=== PATIENT | female | born 1975 | race Caucasian/White ===

== ENCOUNTER 2017-08-25 07:41 | Day surgery (SDC) | payer BC ==
[~2017-08-25 07:41] MED LIST: Bupivacaine 0.25% 10 ML SDV ONE; Lactated Ringers 1,000 ML IV SCH; Sodium Chloride 0.9% 10 ML Syringe FLUSH PRN; Sodium Chloride 0.9% 2.5 ML Syringe FLUSH PRN
[2017-08-25] MEDS ORDERED: fentaNYL 250 MCG/5 ML SDV ONE (08:02)
[2017-08-25] MEDS ORDERED: Ketorolac 30 MG/ML SDV ONE (08:03)
[2017-08-25] MEDS ORDERED: Rocuronium 10 MG/ML 10 ML Syringe ONE (08:03)
[2017-08-25] MEDS ORDERED: Ondansetron 4 MG/2 ML SDV ONE (08:03)
[2017-08-25] MEDS ORDERED: Neostigmine Methylsulfate 1 MG/ML 5 ML Syringe ONE (08:03)
[2017-08-25] MEDS ORDERED: ePHEDrine 50 MG/ML SDV ONE (08:03)
[2017-08-25] MEDS ORDERED: Dexamethasone 4 MG/ML 5 ML MDV ONE (08:03)
[2017-08-25] MEDS ORDERED: Propofol 200 MG/20 ML SDV ONE (08:05)
[2017-08-25] MEDS ORDERED: Midazolam 1 MG/ML 2 ML SDV ONE (08:05)
--- NOTE | 2017-08-25 08:22 | PCM.PREANE ---
Preanesthetic Assessment - Anesthesia/Transfusion/Family Hx Anesthesia History: Prior Anesthesia Without Reaction Family History of Anesthesia Reaction: No Transfusion History: No Prior Transfusion(s) - Review of Systems General: No Symptoms Pulmonary: No Symptoms Cardiovascular: No Symptoms Gastrointestinal: No Symptoms Neurological: No Symptoms Other: Reports: None - Physical Assessment NPO Status Date: 08/24/17 Height: 1.59 m Weight: 75.296 kg ASA Class: 2 Mental Status: Alert & Oriented x3 Airway Class: Mallampati = 2 Dentition: Reports: Normal Dentition ROM/Head Extension: Full Lungs: Clear to Auscultation, Normal Respiratory Effort Cardiovascular: Regular Rate, Regular Rhythm - Lab Values: Laboratory Last Values WBC 8.88 K/uL (4.0-11.0) 08/24/17 16:25 RBC 4.68 M/uL (4.30-5.90) 08/24/17 16:25 Hgb 14.2 g/dL (12.0-16.0) 08/24/17 16:25 Hct 42.0 % (36.0-46.0) 08/24/17 16:25 MCV 89.7 fL (80.0-98.0) 08/24/17 16:25 MCH 30.3 pg (27.0-32.0) 08/24/17 16:25 MCHC 33.8 g/dL (31.0-37.0) 08/24/17 16:25 RDW Std Deviation 46.2 fl (28.0-62.0) 08/24/17 16:25 RDW Coeff of Caron 14 % (11.0-15.0) 08/24/17 16:25 Plt Count 245 K/uL (150-400) 08/24/17 16:25 MPV 11.30 fL (7.40-12.00) 08/24/17 16:25 Nucleated RBC % 0.0 /100WBC 08/24/17 16:25 Nucleated RBCs # 0 K/uL 08/24/17 16:25 HCG, Quant < 1.2 mIU/mL 08/24/17 16:25 - Allergies Allergies/Adverse Reactions: Allergies Allergy/AdvReac Type Severity Reaction Status Date / Time Latex, Natural Rubber Allergy Rash Verified 08/21/17 10:28 morphine Allergy Itching Verified 11/30/17 10:28 Penicillins Allergy Cannot Verified 08/21/17 10:28 Remember - Anesthesia Plan Pre-Op Medication Ordered: None - Acknowledgements Anesthesia Type Planned: General Anesthesia Pt an Appropriate Candidate for the Planned Anesthesia: Yes Alternatives and Risks of Anesthesia Discussed w Pt/Guardian: Yes Pt/Guardian Understands and Agrees with Anesthesia Plan: Yes PreAnesthesia Questionnaire HEENT History: Reports: Allergic Rhinitis Other HEENT History: wears glasses Gastrointestinal History: Reports: GERD 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 History: Reports: Ectopic , Musculoskeletal History: Reports: Fracture, Neck Pain, Chronic Other Musculoskeletal History: hx of fx toe Neurological History: Reports: Headaches, Chronic, Migraines, Other (See Below) Other Neuro History: hx of motion sickness - Past Surgical History Head Surgeries/Procedures: Reports: None HEENT Surgical History: Reports: Tonsillectomy GI Surgical History: Reports: Bariatric Procedure Female Surgical History: Reports: Breast Reduction, Section - SUBSTANCE USE Smoking Status *Q: Never Smoker Recreational Drug Use History: No - HOME MEDS Home Medications: Home Meds Biotin 1,000 mcg PO DAILY 08/20/17 [History] Cetirizine HCl [Zyrtec] 10 mg PO ASDIRECTED 08/20/17 [History] Cyanocobalamin (Vitamin B12) [Vitamin B12] 100 mcg PO DAILY 08/20/17 [History] Levonorgestrel [Mirena] 1 device VAG ONETIME 08/20/17 [History] Ped Multivit #43/Iron Fumarate [Flintstones Complete Chew Tab] 1 tab.chew PO DAILY 08/20/17 [History] Pantoprazole Sodium [Protonix] 20 mg PO ASDIRECTED 08/21/17 [History] - CURRENT (IN HOUSE) MEDS Current Meds: Current Medications Lactated Ringer's (Ringers, Lactated) 1,000 mls @ 125 mls/hr IV ASDIRECTED [facility] Last Admin: 08/25/17 08:09 Dose: 125 mls/hr Sodium Chloride (Saline Flush) 10 ml FLUSH ASDIRECTED PRN PRN Reason: Keep Vein Open Sodium Chloride (Saline Flush) 2.5 ml FLUSH ASDIRECTED PRN PRN Reason: Keep Vein Open Discontinued Medications Bupivacaine HCl (Sensorcaine-Mpf 0.25%) Confirm Administered Dose 20 ml .ROUTE .STK-MED ONE Stop: 08/25/17 07:20 Dexamethasone (Dexamethasone) Confirm Administered Dose 20 mg .ROUTE .STK-MED ONE Stop: 08/25/17 08:04 Ephedrine Sulfate (Ephedrine Sulfate) Confirm Administered Dose 50 mg .ROUTE .STK-MED ONE Stop: 08/25/17 08:04 Fentanyl (Sublimaze) Confirm Administered Dose 250 mcg .ROUTE .STK-MED ONE Stop: 08/25/17 08:03 Glycopyrrolate () Confirm Administered Dose 1 mg .ROUTE .STK-MED ONE Stop: 08/25/17 08:04 Ketorolac Tromethamine (Toradol) Confirm Administered Dose 30 mg .ROUTE .STK- MED ONE Stop: 08/25/17 08:04 Midazolam HCl (Versed 1 Mg/Ml) Confirm Administered Dose 2 mg .ROUTE .STK-MED ONE Stop: 08/25/17 08:06 Neostigmine Methylsulfate (Neostigmine) Confirm Administered Dose 5 mg .ROUTE .STK-MED ONE Stop: 08/25/17 08:04 Ondansetron HCl (Zofran) Confirm Administered Dose 4 mg .ROUTE .STK-MED ONE Stop: 08/25/17 08:04 Propofol (Diprivan 20 Ml) Confirm Administered Dose 200 mg .ROUTE .STK-MED ONE Stop: 08/25/17 08:06 Rocuronium Roy (Zemuron) Confirm Administered Dose 100 mg .ROUTE .STK-MED ONE Stop: 08/25/17 08:04
[2017-08-25] MEDS ORDERED: fentaNYL 100 MCG/2 ML SDV IVPUSH PRN (10:50)
[2017-08-25] MEDS ORDERED: Acetaminophen 1,000 MG in Premix Bag 1 BAG IV ONE (10:52)
--- NOTE | 2017-08-25 10:52 | PCM.OPNOTE ---
- General Post-Op/Procedure Note Date of Surgery/Procedure: 08/25/17 Operative Procedure(s): Diagnostic laparoscopy and pelvic washing Findings: EUA showed normal sized uterus with left adnexal fullness , NO IUD string visualized. Laparoscopy showed a cystic structure continuous with the colon with adhesion to the left pelvis side wall. the cystic structure was above the uterus Intra- op surgical consult Dr Morillo:- recommend colonoscopy and surgical referral. No intervention recommended at this time Pre Op Diagnosis: Left adnexal cyst Post-Op Diagnosis: Left Paracolonic cyst Anesthesia Technique: General ET Tube Primary Surgeon: Livia Martin Secondary Surgeon: Holly Werner Anesthesia Provider: Shashi Bowen Pathology: Pelvic washing Output, Urine Amount: 1,100 EBL in mLs: 5 Complications: None Condition: Good Free Text/Narrative:: Same as above: Supraumbilical entry , with right and letf lower quadrant ports
[2017-08-25] MEDS ORDERED: Promethazine 25 MG/ML SDV IM PRN (10:58)
[2017-08-25] MEDS ORDERED: Ketorolac 30 MG/ML SDV IVPUSH PRN (10:58)
[2017-08-25] MEDS ORDERED: Ondansetron 4 MG/2 ML SDV IVPUSH PRN (10:58)
[2017-08-25] MEDS ORDERED: Ketorolac 30 MG/ML SDV IVPUSH ONE (10:58)
[2017-08-25] MEDS ORDERED: Acetaminophen/oxyCODONE 325-5 MG Tab PO PRN ×2 (10:58)
[2017-08-25 13:31] VITALS: BP 120/63
--- NOTE | 2017-08-26 03:10 | OR ---
SURGEON: NEISHA DUNCAN DATE OF PROCEDURE: 08/25/2017 PROCEDURE: Diagnostic Laparoscopy, Pelvic washing and intraop surgical consult TRAFFIC SIGNAL TECHNICIAN: Dr. Holly Werner. ANESTHESIA: Dr. Bowen general. ESTIMATED BLOOD LOSS: 5 mL. IV FLUIDS: 1100. FINDINGS: Examination under anesthesia noted a left adnexal fullness, anteverted uterus Left paracolonic cyst that had a continuous lining with the colon, which measured about 10 cm and was adhered to the left pelvic sidewall. The uterus, tubes, and ovaries were normal with adhesion noted between the uterus and the bladder. Intraop INDICATIONS: She is a 41-year-old, para 3, who was being followed up for a left adnexal cyst which was initially diagnosed on CT scan. The patient was then followed up in December and had subsequent ultrasound done that showed an increase in the size of the cyst from 9 x 6.9 x 7.6 to 12 x 6 x 8. Based on the increasing size of the mass, the patient was consented for a left adnexal cystectomy. PROCEDURE IN DETAIL: The patient was taken to the operating room where general anesthesia was performed without difficulty. The patient was placed in the dorsal lithotomy position with Edgard stirrups with the knee bent at 30-degree angle. The patient was prepared and draped. A straight catheter was done to empty the bladder. A speculum was placed into the vagina. The anterior lip of the cervix was grasped with Allis forceps. The uterine manipulator was introduced. Then, attention was then turned to the abdomen, where a 5 mm incision was made superior to the umbilicus in the midline, and the abdomen was entered under direct visualization with the optical trocar. Once the abdomen was entered, the gas was connected and pneumoperitoneum was obtained to 15 mmHg. The abdomen was then inspected and noted to have minimal adhesions superiorly towards the liver. the survey of the abdomen, there was about a 10 cm mass which was continuous with the colon which seemed to contain some clear fluid. The mass was adhered to the left pelvic sidewall. An intraop surgical consult was obtained through Dr. Morillo who recommended a referral to the surgical clinic and also a colonoscopy, and he would review the images and decide procedure needed for the patient since the patient had no bowel symptoms. All the trocars were then removed and the abdomen was deflated. Hemostasis was noted after the procedure. The laparoscopic incision was closed with 3-0 Monocryl. The patient tolerated the procedure well and taken from the operating room in stable condition. The uterine manipulator was also removed after the procedure. : ADEEL PANTOJA /[id number] MTDD
== END 2017-08-25 13:32 | disposition home or self-care (01) ==
LOC: MW.SDS 07:41 → MERGE 08:00 → MW.SDS 13:32
PROVIDERS: ATTEND Obstetrics & Gynecology
DX: N94.89 Other specified conditions associated with female genital organs and menstrual cycle (principal); I10 Essential (primary) hypertension; G43.909 Migraine, unspecified, not intractable, without status migrainosus; K21.9 Gastro-esophageal reflux disease without esophagitis; G89.29 Other chronic pain; M54.2 Cervicalgia; Z87.59 Personal history of other complications of pregnancy, childbirth and the puerperium; Z79.899 Other long term (current) drug therapy; Z88.0 Allergy status to penicillin; Z88.5 Allergy status to narcotic agent; Z91.040 Latex allergy status; Z97.5 Presence of (intrauterine) contraceptive device; Z98.84 Bariatric surgery status; Z98.890 Other specified postprocedural states
CPT/HCPCS: 36415; 49320; 84702; 84703; 85027; 86850; 86900; 86901; J1100; J1885; J2250; J2405; J3010; J7120; 00840; 88104; J2704

== ENCOUNTER 2022-09-04 03:39 | Emergency (ER) | payer BC ==
[2022-09-04] MEDS ORDERED: methylPREDNISolone Sodium Succinate 125 MG/2 ML SDV IVPUSH ONE (03:42)
[2022-09-04] MEDS ORDERED: diphenhydrAMINE 50 MG/ML SDV IVPUSH ONE (03:42)
[2022-09-04] MEDS ORDERED: Famotidine 20 MG/2 ML SDV IVPUSH ONE (03:43)
[2022-09-04 08:51] VITALS: BP 132/65; PULSE 76
== END 2022-09-04 08:48 | disposition home or self-care (01) ==
LOC: MW.ED 03:39
DX: T78.3XXA Angioneurotic edema, initial encounter (principal); K21.9 Gastro-esophageal reflux disease without esophagitis; I10 Essential (primary) hypertension; Z91.040 Latex allergy status; Z88.5 Allergy status to narcotic agent; Z88.0 Allergy status to penicillin; Z79.899 Other long term (current) drug therapy
CPT/HCPCS: 96374; 96375; 99283; J1200; J2930; J3490

== ENCOUNTER 2024-12-27 06:30 | Day surgery (SDC) | payer BC ==
[2024-12-27] MEDS ORDERED: Propofol 200 MG/20 ML SDV ONE (06:59)
[2024-12-27] MEDS ORDERED: fentaNYL 100 MCG/2 ML SDV ONE (06:59)
[2024-12-27] MEDS ORDERED: Lidocaine 1% 5 ML VIAL ONE (07:00)
[2024-12-27] MEDS ORDERED: Ondansetron 4 MG/2 ML SDV ONE ×2 (07:00→07:18)
[2024-12-27] MEDS ORDERED: Rocuronium Bromide 50 MG/5 ML Syringe ONE (07:00)
[2024-12-27] MEDS ORDERED: Dexamethasone 4 MG/ML 5 ML MDV ONE (07:00)
[2024-12-27] MEDS ORDERED: dexmedeTOMIDine HCl 200 MCG/2 ML SDV ONE (07:01)
[2024-12-27] MEDS ORDERED: ceFAZolin 2 GM Vial ONE (07:01)
[2024-12-27] MEDS ORDERED: Ketorolac 30 MG/ML SDV ONE (07:02)
[2024-12-27] MEDS ORDERED: Sodium Chloride 0.9% 20 ML ONE (07:03)
[2024-12-27] MEDS ORDERED: Bupivacaine 0.25% 30 ML SDV ONE (07:04)
[2024-12-27] MEDS ORDERED: Lidocaine 1% with EPINEPHrine 1:100,000 10 ML MDV ONE (07:04)
[2024-12-27] MEDS ORDERED: Neomycin/Polymyxin B Bladder Irrigation 1 ML Amp ONE (07:05)
[2024-12-27] MEDS ORDERED: propofoL 500 MG/50 ML 0 ML ONE (07:05)
[2024-12-27 07:08] LABS: HEMATOCRIT 42.8 % (37.0-47.0); HEMOGLOBIN 14.8 g/dL (12.0-16.0); MEAN CORPUSCULAR HGB CONC 34.6 g/dL (32.0-36.0); MEAN CORPUSCULAR VOLUME 86.8 fL (83.0-99.0); MEAN PLATELET VOLUME 11.3 fL (9.4-12.3); PLATELET COUNT,PLT 286 K/uL (150-400); RED BLOOD CELL COUNT 4.93 M/uL (4.10-5.30); WHITE BLOOD CELL COUNT,WBC 9.37 K/uL (3.9-11.3)
[2024-12-27] MEDS: Lactated Ringers 1,000 ML IV SCH (07:08)
[2024-12-27] MEDS: Scopalamine 1mg/3day Transdermal Patch TOP ONE (07:09)
[2024-12-27] MEDS ORDERED: Metoclopramide 10 MG/2 ML SDV ONE (07:17)
[2024-12-27] MEDS ORDERED: Morphine 2 MG/ML SYRINGE IVPUSH PRN (07:34)
[2024-12-27] MEDS ORDERED: Ondansetron 4 MG/2 ML SDV IVPUSH PRN (07:34)
[2024-12-27] MEDS ORDERED: Albuterol 0.083% 2.5 MG/3 ML Neb Soln NEB PRN (07:34)
[2024-12-27] MEDS ORDERED: Naloxone 0.4 MG/ML SDV IVPUSH PRN (07:34)
[2024-12-27] MEDS ORDERED: Metoclopramide 10 MG/2 ML SDV IVPUSH PRN (07:34)
[2024-12-27] MEDS ORDERED: HYDROmorphone 1 MG/ML Syringe IVPUSH PRN (07:34)
[2024-12-27] MEDS ORDERED: Phenylephrine HCl In 0.9% NaCl 1 MG/10 ML Syringe IVPUSH PRN (07:34)
[2024-12-27] MEDS ORDERED: Sugammadex Sodium 200 MG/2 ML VIAL IV ONE (08:11)
[2024-12-27] MEDS: fentaNYL 50 MCG/ML SDV IVPUSH PRN (09:24)
[2024-12-27 10:59] VITALS: BP 144/81; PULSE 70
== END 2024-12-27 10:37 | disposition home or self-care (01) ==
LOC: MW.SDS 06:30
PROVIDERS: ATTEND Obstetrics & Gynecology
DX: Z30.432 Encounter for removal of intrauterine contraceptive device (principal); N39.3 Stress incontinence (female) (male); I10 Essential (primary) hypertension; K21.9 Gastro-esophageal reflux disease without esophagitis; F32.A Depression, unspecified; Z87.891 Personal history of nicotine dependence; Z79.899 Other long term (current) drug therapy; Z88.0 Allergy status to penicillin; Z91.040 Latex allergy status; Z88.5 Allergy status to narcotic agent
CPT/HCPCS: 36415; 57288; 58579; 84703; 85027; A9270; C1771; J0665; J0690; J1100; J2003; J2704; J3010; J7120; 00952; J1885; J2405; J2765; J3490